=== PATIENT | male | born 1940 | race Caucasian/White ===

== ENCOUNTER → 2021-05-15 | Outpatient (CLI) | payer OTHER ==
[~2021-05-15] MED LIST: ALEVE220 M1 PO; AMARYL2 M1 PO; CENTRAVITES 501 EAC1 PO; CHILDREN'S ASPI81 M1 PO; FUROSEMIDE 40 M40 M1 PO; KLOR-CON 1010 MEQ PO; LEVO-T25 MCG PO; LIPITOR80 MG PO; METFORMIN HCL500 M3 PO; TOPROL XL25 MG PO
== END ==
LOC: LAB 06:21
PROVIDERS: ATTEND Student in an Organized Health Care Education/Training Program
DX: Z01.812 Encounter for preprocedural laboratory examination (principal); Z20.822 Contact with and (suspected) exposure to COVID-19

== ENCOUNTER → 2021-05-18 | Outpatient (CLI) | payer OTHER ==
[~2021-05-18] VITALS: Ht 175.3 cm; Wt 68.0 kg
--- NOTE | 2021-05-22 12:07 | PATH ---
[facility] [address] [place] [address] PATHOLOGY RPT PROCEDURE Name: AUDREYJUDSON Ross Room #: REG [facility] MMariana.#: [id number] Admission: 05/18/21 Date of : 44 Discharge: Report #: [id number] Path Case #: [id number] LCA Accession Number: [id number] . 01 Material submitted: . PART A: gastrointestinal site - GASTRITIS BIOPSY PART B: colon - ASCENDING COLON POLYP. Modifiers: ascending . 01 Clinical history: . ESOPHAGOGASTRODUODENOSCOPY, COLONOSCOPY BLOOD IN STOOL/ CRCS . 02 Diagnosis: A. Gastric mucosa (biopsy): - Marked chronic gastritis with marked activity, negative for dysplasia, negative for intestinal metaplasia, negative for Helicobacter-like organisms. . B. Gastric mucosa (ascending colon biopsy): - Inflammatory polyp with marked chronic inflammation. . (MIGUE:car; 05/21/2021) AGUSTIN 05/21/2021 [facility] Local . 02 Comment: IHC for H. pylori on A1: Negative. . Consideration of chronic inflammatory bowel disease could be considered. We find no evidence of epithelial dysplasia or malignancy. . (SONUBecky:car; 05/21/2021) . 02 Electronically signed: . Theron Linares MD, Pathologist NPI- [id number] . 01 Gross description: . A. Received in formalin labeled "Judson Carney, gastritis biopsy" are multiple rodriges-brown soft tissue fragments measuring in aggregate 1.4 x 0.4 x 0.3 cm. The specimen is submitted entirely in A1. . B. Received in formalin labeled "Judson Carney, ascending colon polyp" are multiple rodriges-brown soft tissue fragments measuring in aggregate 0.9 x 0.6 x 0.3 cm. The specimen is submitted entirely in B1. ([facility]; 05/19/2021) GZA/GZA 05/21/2021 1336 Local . 02 Pathologist provided ICD-10: [address] [address] PATHOLOGY RPT PROCEDURE Name: JUDSON CARNEY R [facility] [id number] Admission: 05/18/21 Date of : 44 Discharge: Report #: [id number] Path Case #: [id number] K29.50, K63.5, K52.9 . 02 CPT . 026846, [id number], [id number] Specimen Comment: A courtesy copy of this report has been sent to [phone], [phone] Specimen Comment: [phone] Specimen Comment: Report sent to / DR LEON Specimen Comment: A duplicate report has been generated due to demographic updates. Performed at: [facility] [address] [id number] MD Ramo Garcia MD Phone: [phone] Performed at: [address] [id number] MD Theron Linares MD Phone: [phone]
--- NOTE | 2021-05-23 08:33 | P ---
[facility] [place] [address] PROCEDURE REPORT Name: CARMENZA VENTURA Room #: REG ROSEMARY Tulio#: [id number] Admission: 05/18/21 Attend Phys: Mike Bhatia Discharge: Date of : 42 Report #: [id number] THIS REPORT FOR: cc: Adia Andrew MD,Adia Deleon,Mike Fitzpatrick MD ~ cc: Dr. Adia Andrew DATE OF SERVICE: 05/18/2021 PROCEDURE PERFORMED: Upper endoscopy with biopsies. HISTORY OF PRESENT ILLNESS: The patient is a 81-year-old male, fair historian. Denies any GI symptoms. Apparently a caregiver noticed possible blood in his stools. He has never had a colonoscopy or upper endoscopy. He denies any nausea, vomiting, dysphagia, heartburn or melena as well as bright red blood per rectum. No family history of colon cancer. Plan is for EGD and colonoscopy today. DESCRIPTION OF PROCEDURE: The risks and benefits of the procedure were explained to the patient, those risks including but not limited to bleeding, perforation and the risk of sedation. He understood these risks and gave informed consent. Sedation was given using propofol per anesthesia. Next, using a standard Olympus upper endoscope, the scope was placed in the patient's mouth and advanced under direct vision through the esophagus, stomach and into the second portion of the duodenum. The larynx was normal in appearance. The esophagus was normal throughout. The GE junction was normal. There was a mild diffuse gastritis noted in the gastric body. Biopsies were obtained to rule out H. pylori. Also noted in the gastric antrum was a submucosal 2 cm mass. The pylorus was normal and patent. The duodenal bulb, first and second portion were all normal. The major papilla was seen and normal. The scope was then withdrawn and the procedure terminated. The patient tolerated the procedure well. IMPRESSION: 1. Mild gastritis. 2. Submucosal mass/nodule in the gastric antrum. 3. Otherwise, normal upper endoscopy. RECOMMENDATIONS: 1. Await biopsy results. 2. Consider endoscopic ultrasound for further evaluation of antral submucosal mass. 3. We will proceed with colonoscopy next today. [address] [address] PROCEDURE REPORT Name: CARMENZA VENTURA Room #: REG [facility] Tulio#: [id number] Admission: 05/18/21 Attend Phys: Mike Bhatia Discharge: Date of : 42 Report #: [id number] Thank you for allowing me to participate in his care. <ELECTRONICALLY SIGNED> By: Mike Deleon MD 05/23/21 0833 1220 8240 Mike Deleon MD /nt
--- NOTE | 2021-05-23 08:33 | P ---
[facility] [place] [address] PROCEDURE REPORT Name: CARMENZA VENTURA Room #: REG ROSEMARY Tulio#: [id number] Admission: 05/18/21 Attend Phys: Mike Bhatia Discharge: Date of : 42 Report #: [id number] THIS REPORT FOR: cc: Adia Andrew MD,Adia Deleon,Mike Fitzpatrick MD ~ cc: Dr. Adia Andrew DATE OF SERVICE: 05/18/2021 PROCEDURE PERFORMED: Colonoscopy with polypectomy and APC cautery. HISTORY OF PRESENT ILLNESS: The patient is a 81-year-old male with a history of possible blood in his stools noted by a caregiver. The caregiver is not present today. Unclear if this was bright red blood or melanotic stools. The patient denies any obvious bleeding. Upper endoscopy was just performed, which showed mild gastritis. No evidence of bleeding. The patient has never had a colonoscopy. No family history of colon cancer. He denies any diarrhea or constipation. DESCRIPTION OF PROCEDURE: The risks and benefits of the procedure were explained to the patient, those risks including but not limited to bleeding, perforation and the risk of sedation. He understood these risks and gave informed consent. Sedation was given using propofol per anesthesia. Next, a digital rectal exam was initially performed, which was normal. Next, using a pediatric Olympus colonoscope, the scope was placed in the patient's anus and advanced under direct vision to the cecum. The overall prep was good. The cecum and ileocecal valve were normal in appearance. In the proximal ascending colon, a 7 mm sessile polyp was noted. This was removed by snare cautery, otherwise normal. The transverse and descending and sigmoid colon were normal. In the distal rectum, there was what appears to be a possible radiation proctitis. This was mild. No evidence of bleeding. Because of his history of possible bleeding, I proceeded to treat these with APC cautery. There was no evidence of bleeding after cauterization as well. Small nonbleeding internal hemorrhoids were also noted. The scope was then withdrawn and the procedure terminated. The patient tolerated the procedure well. IMPRESSION: 1. 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 2. Ascending colon polyp. 3. Internal hemorrhoids. RECOMMENDATIONS: 1. Await biopsy results. 2. Observe the patient status post procedure. [address] [address] PROCEDURE REPORT Name: CARMENZA VENTURA Room #: REG CL Tulio#: [id number] Admission: 05/18/21 Attend Phys: Mike Bhatia Discharge: Date of : 42 Report #: [id number] Thank you for allowing me to participate in his care. <ELECTRONICALLY SIGNED> By: Mike Deleon MD 05/23/21 0833 1302 2338 Mike Deleon MD /calli
== END | disposition home or self-care (01) ==
LOC: GI
PROVIDERS: ATTEND Specialist
DX: K62.5 Hemorrhage of anus and rectum (principal); K51.40 Inflammatory polyps of colon without complications; K52.9 Noninfective gastroenteritis and colitis, unspecified; K29.50 Unspecified chronic gastritis without bleeding; K64.8 Other hemorrhoids; I10 Essential (primary) hypertension; E11.9 Type 2 diabetes mellitus without complications; E78.5 Hyperlipidemia, unspecified; E03.9 Hypothyroidism, unspecified; E78.00 Pure hypercholesterolemia, unspecified; Z98.890 Other specified postprocedural states; Z79.899 Other long term (current) drug therapy; Z79.82 Long term (current) use of aspirin; Z87.891 Personal history of nicotine dependence; Z85.820 Personal history of malignant melanoma of skin; Z88.8 Allergy status to other drugs, medicaments and biological substances
CPT/HCPCS: 62110; 62900

== ENCOUNTER 2021-07-16 13:08 | Inpatient (IN) | payer OTHER ==
[~2021-07-16] VITALS: Ht 172.7 cm; Wt 70.0 kg
[2021-07-16 13:53] VITALS: BP 149/77
[2021-07-16 18:14] LABS: URINE BILIRUBIN NEGATIVE (Negative); URINE BLOOD NEGATIVE (Negative); URINE CLARITY CLEAR; URINE COLOR YELLOW; URINE GLUCOSE-RANDOM* NEGATIVE (Negative); URINE KETONES NEGATIVE (Negative); URINE LEUKOCYTES-REFLEX NEGATIVE (Negative); URINE NITRITE-REFLEX NEGATIVE (Negative); URINE PROTEIN (DIPSTICK) NEGATIVE (Negative); URINE SPECIFIC GRAVITY 1.015 (1.005-1.035); URINE UROBILINOGEN 0.2 E.U./dl (0.2-1.0)
[2021-07-16 18:20] LABS: ABSOLUTE NEUTROPHILS 5.6 thou/uL (1.4-8.2); BASOPHILS 0.1 % (0.0-2.0); EOSINOPHILS 0.1 % (0.0-3.0); HEMOGLOBIN 8.3 gm/dL (14.0-18.0); LYMPHOCYTES 10.9 % (24.0-44.0); MCH 24.8 pg (26.0-34.0); MCV 77.4 fL (80.0-100.0); MONOCYTES 9.8 % (1.0-8.0); PLATELET COUNT 150 thou/uL (150-400); POLYS 79.1 % (36.0-66.0); RBC 3.36 mil/uL (4.50-6.00); RDW 18.2 % (10.5-14.5); WBC 7.1 thou/uL (4.0-11.0)
[2021-07-16 18:38] LABS: CALCIUM 9.8 mg/dL (8.5-10.1); CREATININE 1.7 mg/dL (0.7-1.3)
[2021-07-16 18:41] LABS: ANISOCYTOSIS 1+
[2021-07-16 18:44] LABS: ALBUMIN 2.4 g/dL (3.4-5.0); TOTAL BILIRUBIN 0.9 mg/dL (0.2-1.0); TOTAL PROTEIN 8.4 g/dL (6.4-8.2)
[2021-07-16 22:36] LABS: % SATURATION 7 % (20-39); IRON 24 ug/dL (65-175); TIBC 351 ug/dL (250-450)
[2021-07-16 22:37] LABS: CHOLESTEROL 132 mg/dL (<200); HDL CHOLESTEROL 23 mg/dL (>40); LDL CHOLESTEROL 71 mg/dL (<100); TC:HDL 5.7 Ratio (Not establshd); TRIGLYCERIDE 192 mg/dL (<150); VLDL 38 mg/dL (<40)
[2021-07-16 22:39] LABS: SERUM ASSESSMENT Clear
[2021-07-16 23:36] LABS: FOLIC ACID 42.2 ng/mL (8.6-58.9)
[2021-07-16 23:45] VITALS: BP 105/58
[2021-07-17 06:15] VITALS: BP 116/55
--- NOTE | 2021-07-17 06:42 | NUR ---
PT SLEPT MOST OF THE NIGHT. RESP EVEN AND UNLABORED. INCONTINENT OF URINE. IVF INFUSING ORDERED. VSS. AFEBRILE. NO NEW CONCERNS NOTED.
--- NOTE | 2021-07-17 07:34 | EKG ---
[address] [address] ELECTROCARDIOGRAM REPORT Name: CARMENZA VENTURA Room #: 170-14 ADM IN M.R.#: [id number] Admission: 07/16/21 Attend Phys: Vicente Steele MD Discharge: Date of : 42 Report #: [id number] [facility] ED Test Date: 2021-07-16 Test Time: 18:13:46 Pat Name: CARMENZA VENTURA Department: Room: 170 Gender: M Academic Program Specialist: : 1940 Requested By: Lilia Morales Order Number: [id number] MD: Martir Acevedo Measurements Intervals [place] Rate: 98 P: 39 ME: 131 QRS: 9 QRSD: 90 T: 45 QT: 353 QTc: 451 Interpretive Statements Sinus rhythm Atrial premature complex Compared to ECG 07/30/2005 14:29:27 Atrial premature complex(es) now present Electronically Signed On 07-17-2021 7:34:42 NARROW GAUGE OPERATOR by Martir Acevedo [email or web address] <ELECTRONICALLY SIGNED> By: Martir Acevedo MD, [facility] 07/17/21 0734 1812 12 Martir Acevedo MD, FACC /EPI
[2021-07-17 08:22] VITALS: BP 116/55
[2021-07-17 08:24] LABS: HEMATOCRIT 22.7 % (42.0-52.0); MCH 24.3 pg (26.0-34.0); MCHC 31.1 g/dL (28.0-37.0); RBC 2.9 mil/uL (4.50-6.00); RDW 18.5 % (10.5-14.5); WBC 3.5 thou/uL (4.0-11.0)
[2021-07-17 09:07] LABS: CREATININE 1.4 mg/dL (0.7-1.3); POTASSIUM 4.3 mmol/L (3.5-5.1)
[2021-07-17 14:58] VITALS: BP 116/55
[2021-07-17 17:04] VITALS: BP 118/60
--- NOTE | 2021-07-17 18:05 | NUR ---
81 year old male presents to the ED via EMS with caregiver with AMS. Caregiver reports unable to answer questions at doctors appointment earlier and unable to care for self or his . The patient has been admitted with BRANDON, Hyponatremia, Metabolic encephalopathy, Lactic acidosis,, debility and weakness with falls, as well as hx of Frozen left hip s/p Left TKR, DMII, HTN, HLD and Hypothyroidism. Notably per ED Triage Assessment listed as not vaccinated: HOWEVER son notes father IS vaccinated and ED ID NOW shows negative. Therapy orders have been placed and GI has been consulted. Patient list son Wilfrid Carney at [phone] as next of kin. Spoke with son who states parents are in the process of moving into [facility] but currently living at home with a caregiver. Introduced the role of CM and noted as medical assessments are completed with therapy evaluations, CM will contact for discharge need with anticipated discharge to [facility] skilled care is so warranted. CM will continue to follow.
[2021-07-17 20:00] VITALS: BP 120/60
[2021-07-17 23:56] VITALS: BP 125/60
[2021-07-18] VITALS (8 sets, daily range): BP systolic 105–144; BP diastolic 54–71
[2021-07-18 01:06] LABS: GLYCOHEMOGLOBIN (HGB A1C) 9.2 % (4.8-5.6)
[2021-07-18 03:06] LABS: RBC 2.68 mil/uL (4.50-6.00)
[2021-07-18 03:08] LABS: HEMATOCRIT 21.1 % (42.0-52.0); HEMOGLOBIN 6.7 gm/dL (14.0-18.0); MCH 24.9 pg (26.0-34.0); MCHC 31.6 g/dL (28.0-37.0); MCV 78.8 fL (80.0-100.0); RDW 19.2 % (10.5-14.5); WBC 2.7 thou/uL (4.0-11.0)
[2021-07-18 03:58] LABS: CALCIUM 8.8 mg/dL (8.5-10.1); CREATININE 1.6 mg/dL (0.7-1.3); POTASSIUM 4.1 mmol/L (3.5-5.1)
--- NOTE | 2021-07-18 11:45 | NUR ---
SNF referral initiated with Ru Velazquez and clinical faxed to Hilda in admissions. Pt may be dc ready tomorrow or Friday. No auth needed as pt is medicare. [facility] completed and faxed along with the referral. Son's number provided to admissions for f/u regarding shelter plans for both pt/spouse to move to that senior living community. They are reviewing.
[2021-07-18 13:11] LABS: OBSERVED RETIC COUNT 2.13 % (0.6-2.6)
[2021-07-18 13:29] LABS: ABSOLUTE RETIC COUNT 0.0578 10^6/uL
--- NOTE | 2021-07-18 18:38 | NUR ---
pt admitted to the unit from the ed. oriented to room and bedspace. manuel diet and fluids. assessment as charted - no co's of pain or nausea. states comfortable at the present time.
[2021-07-18 21:06] LABS: IgG 2017 mg/dL (603-1613); IgM 242 mg/dL (15-143)
[2021-07-18 22:06] LABS: IgA 1018 mg/dL (61-437)
[2021-07-19 02:50] LABS: HEMATOCRIT 24.2 % (42.0-52.0); HEMOGLOBIN 7.6 gm/dL (14.0-18.0); MCH 25.4 pg (26.0-34.0); MCHC 31.6 g/dL (28.0-37.0); MCV 80.4 fL (80.0-100.0); RBC 3.01 mil/uL (4.50-6.00); RDW 18.3 % (10.5-14.5); WBC 3.1 thou/uL (4.0-11.0)
--- NOTE | 2021-07-19 02:54 | NUR ---
ASSESSMENTS CHARTED, MEDS CHARTED GIVEN. PATIENT RESTING IN BED DURING SHIFT. PATIENT RECEIVED ONE UNIT PRBC DURING DAY SHIFT. AOX4, SINUS TACH ON TELEMETRY. LUNGS ARE COARSE ON ROOM AIR. APPLIED CONDOM CATH. PATIENT AKNOWLEDGES TO LEAVE IT ALONE. PATIENT AND CONSIDERING MOVING TO [facility]. CURRENTLY HAVE HOME HEALTH.
[2021-07-19 02:59] LABS: CALCIUM 8.8 mg/dL (8.5-10.1); CREATININE 1.2 mg/dL (0.7-1.3)
[2021-07-19 04:41] VITALS: BP 138/67
[2021-07-19 05:07] LABS: HEMOGLOBIN 6.6 g/dL (13.0-17.7)
[2021-07-19 07:55] VITALS: BP 127/66
[2021-07-19 09:07] LABS: KAPPA FREE LIGHT CHAINS 193.9 mg/L (3.3-19.4); KAPPA/LAMBDA RATIO 1.33 (0.26-1.65); LAMBDA FREE LIGHT CHAINS 145.7 mg/L (5.7-26.3)
[2021-07-19 11:07] LABS: HEP B SURFACE Ab(ANTI-HBS Non Reactive (()); HEPATITIS B SURFACE AG Negative (Negative); HEPATITIS C VIRUS AB 0.1 (0.0-0.9)
[2021-07-19 11:24] VITALS: BP 135/98
--- NOTE | 2021-07-19 13:01 | NUR ---
Nutrition: pt admitted with anemia, AMS and seen due to wound risk. Nsg reports this is boggy heel, bruise on back. No open pressure wounds. Pt is eating well, 80-100% of meals on Carb controlled, heart healthy diet. No weight loss per hx. Gi following, on Fe+ infusion. Consider low nutrition risk
[2021-07-19 15:08] LABS: GLOBULIN TOTAL 4.4 g/dL (2.2-3.9); M-SPIKE Not Observed g/dL (Not Observed)
[2021-07-19 15:13] VITALS: BP 119/65
--- NOTE | 2021-07-19 16:08 | NUR ---
JOSÉ LUIS FOLLOWED UP WITH MAGALIS WITH [facility] FOR SNF. SHE INDICATED PT IS ACCEPTED FOR HOWEVER NO BONNIE AVAILABLE. SHE REPORTS NOT HAVING ONE AVAILABLE UNTIL FRIDAY. WILL SAVE FOR PT. JOSÉ LUIS WILL SPEAK TO PT AND FAMILY FOR ANOTHER SELECTED CHOICE IN FACILITIES AND SENT REFERRAL. CM FOLLOWING.
--- NOTE | 2021-07-19 16:19 | NUR ---
[facility]. CM WILL FOLLOW.
[2021-07-19 19:06] LABS: ANA INTERPRETATION Positive (())
--- NOTE | 2021-07-19 19:24 | NUR ---
Pt has been A&0x4, VS stable and afebrile. HR was elevated in AM. Pt was given metropolol and HR went down to 80s and 90s for remainder of shift. Pt has been resting in bed. Pt worked with OT. Was not able to work with PT d/t elevated HR. Pt has a non-productive cough. Cough meds given Q4, pt stated that "it doesn't seem to be working". No complaints of pain. No current concerns. Continue to monitor.
[2021-07-19 20:35] VITALS: BP 143/80
[2021-07-20 03:21] LABS: HEMATOCRIT 26.9 % (42.0-52.0); HEMOGLOBIN 8.4 gm/dL (14.0-18.0); MCH 25.2 pg (26.0-34.0); MCHC 31.3 g/dL (28.0-37.0); MCV 80.5 fL (80.0-100.0); RBC 3.34 mil/uL (4.50-6.00); RDW 18.7 % (10.5-14.5)
[2021-07-20 03:42] VITALS: BP 130/61
--- NOTE | 2021-07-20 07:29 | NUR ---
PT ALERT AND ORIENTED TO NAME AND TIME, AND REORIENTS EASILY YET FORGETFUL, VSS, NO C/O PAIN REPOSITIONED FREQUENTLY, LEGS ELEVATED ON PILLOWS, IV FLUIDS INFUSING R FA, WILL CON'T TO MONITOR PER PPOC.
[2021-07-20 08:00] VITALS: BP 130/65
--- NOTE | 2021-07-20 11:01 | 2DMMODE ---
[facility] [place] [address] 2 D/M-MODE ECHOCARDIOGRAM Name: CARMENZA VENTURA Room #: 207-P ADM IN M.R.#: [id number] Admission: 07/16/21 Attend Phys: Vicente Steele MD Discharge: Date of : 42 Report #: [id number] THIS REPORT FOR: cc: Adia Andrew MD, Melanie MD Santiago, Patrick MD [facility] ~ APPROVED REPORT Study performed: 07/20/2021 09:30:39 EXAM: Comprehensive 2D, Doppler, and color-flow Echocardiogram Patient Location: In-Patient Room #: 207 Status: routine BSA: 1.84 HR: 91 bpm BP: 130/61 mmHg Rhythm: NSR Other Information Study Quality: Adequate Technically limited study due to body habitus. Indications Diabetes AMS 2D Dimensions IVSd: 11.28 (7-11mm) LVOT Diam: 20.81 (18-24mm) LVDd: 37.07 mm PWd: 9.83 (7-11mm) Ascending Ao: 27.41 (22-36mm) LVDs: 26.99 (25-40mm) Left Atrium: 34.30 (27-40mm) Aortic Root: 35.39 mm LV Single Plane 4CH: 43.77 % LV Single Plane 2CH: 55.47 % Volumes Left Atrial Volume (Systole) Single Plane 4CH: 34.15 mL Single Plane 2CH: 34.58 mL Biplane LA Volume: 38.00 mL LA ESV Index: 20.00 mL/m2 Aortic Valve [facility] [address] [place] [address] 2 D/M-MODE ECHOCARDIOGRAM Name: CARMENZA VENTURA Room #: 207-P [facility] IN .R.#: [id number] Admission: 07/16/21 Attend Phys: Vicente Steele MD Discharge: Date of : 42 Report #: [id number] AoV Peak Ty.: 1.81 m/s AO Peak Gr.: 13.10 mmHg LVOT Max P.17 mmHg LVOT Max V: 1.02 m/s ADOLFO Vmax: 1.92 cm2 Mitral Valve E/A Ratio: 1.3 MV Decel. Time: 2442.03 ms MV E Max Ty.: 0.73 m/s MV A Ty.: 0.57 m/s MV PHT: 708.19 ms Pulmonary Valve PV Peak Ty.: 0.92 m/s PV Peak Gr.: 3.35 mmHg AZ End Vmax: 1.71 m/s Pulmonary Vein P Vein S: 0.73 m/s P Vein A: 0.29 m/s P Vein D: 0.59 m/s P Vein A Dur.: 115.3 msec P Vein S/D Ratio: 1.24 Tricuspid Valve TR Peak Ty.: 3.40 m/s RAP Estimate: 7.00 mmHg TR Peak Gr.: 46.36 mmHg RVSP: 53.00 mmHg Left Ventricle The left ventricle is normal size. There is normal LV segmental wall motion. There is normal left ventricular wall thickness. Left ventricular systolic function is normal. The left ventricular ejection fraction is within the normal range. LVEF is 50-55%. This study is not technically sufficient to allow evaluation of the LV diastolic function due to atrial fibrillation. Right Ventricle The right ventricle is normal size. The right ventricular systolic function is normal. Atria Left atrium is mildly dilated. Small PFO is noted. Doppler suggests left to right interatrial shunt. The right atrium size is normal. Aortic Valve Aortic valve is trileaflet. No aortic regurgitation is present. There is no aortic valvular stenosis. [facility] [address] [address] 2 D/M-MODE ECHOCARDIOGRAM Name: CARMENZA VENTURA Room #: 207-P [facility] IN [facility]#: [id number] Admission: 07/16/21 Attend Phys: Vicente Steele MD Discharge: Date of : 42 Report #: [id number] Mitral Valve The mitral valve is normal in structure. Trace mitral regurgitation. No evidence of mitral valve stenosis. Tricuspid Valve The tricuspid valve is normal in structure. Mild to moderate tricuspid regurgitation PAP 53 mmHg Pulmonic Valve The pulmonary valve is normal in structure. There is no pulmonic valvular regurgitation. Great Vessels The aortic root is normal in size. IVC is normal in size and collapses >50% with inspiration. Pericardium There is no pericardial effusion. There is no pleural effusion. <Conclusion> Normal left ventricle size/wall thickness Ejection fraction 55% Normal right ventricle size/function Left atrium mildly dilated Aortic valve mildly calcified, no stenosis Normal mitral valve structure and function Mild tricuspid valve insufficiency Moderate pulmonary hypertension PA pressure estimated 53 mmHg No pericardial effusion Normal aortic root size <ELECTRONICALLY SIGNED> By: Eyal Howard MD, FACC 07/20/21 1100 1100 99 Eyal Howard MD, FACC /INF
--- NOTE | 2021-07-20 11:28 | NUR ---
PT MEDICALLY STABLE TO OR. [facility] AVAILABLE UNTIL FRIDAY. THEY WILL HOLD A BED FOR HIM AND PT WILL TRANSFER FRIDAY THE . [facility] PHONE NUMBER [phone] AND FAX [phone]. MAGALIS REQUEST COPY OF COVID VACCINATION CARE. SPOKE TO LUCIANA PTS SON AND MAYA CARDOSOS CAREGIVER. ALL PARTIES AWARE. LUCIANA WILL FORWARD COPY OF VACCINATED CARE TO [place]. CM WILL FOLLOW.
[2021-07-20 11:35] VITALS: BP 128/63
[2021-07-20 15:18] VITALS: BP 143/78
[2021-07-20 20:36] VITALS: BP 143/62
--- NOTE | 2021-07-21 01:43 | NUR ---
pt is hallucinating thinking that he sees a cat on the floor. he is agreeable and remembering directions. bed alarm set. he is wanting to sit on the edge of the bed. repositioned and gave him some fresh water. he is settling down trying to rest.
[2021-07-21 03:42] VITALS: BP 133/68
[2021-07-21 07:54] VITALS: BP 143/70
[2021-07-21 11:14] VITALS: BP 136/70
[2021-07-21 12:28] LABS: ABSOLUTE NEUTROPHILS 3.2 thou/uL (1.4-8.2); BASOPHILS 0.4 % (0.0-2.0); EOSINOPHILS 3.4 % (0.0-3.0); HEMATOCRIT 28.6 % (42.0-52.0); HEMOGLOBIN 8.8 gm/dL (14.0-18.0); LYMPHOCYTES 14.7 % (24.0-44.0); MCH 25.3 pg (26.0-34.0); MCV 81.6 fL (80.0-100.0); MONOCYTES 10.6 % (1.0-8.0); PLATELET COUNT 127 thou/uL (150-400); POLYS 70.9 % (36.0-66.0); RDW 18.9 % (10.5-14.5); WBC 4.6 thou/uL (4.0-11.0)
[2021-07-21 12:43] LABS: ALBUMIN 1.9 g/dL (3.4-5.0); CALCIUM 8.8 mg/dL (8.5-10.1); CREATININE 1.2 mg/dL (0.7-1.3); MAGNESIUM 1.7 mg/dL (1.8-2.4); POTASSIUM 4.1 mmol/L (3.5-5.1); TOTAL BILIRUBIN 0.9 mg/dL (0.2-1.0); TOTAL PROTEIN 7.3 g/dL (6.4-8.2)
--- NOTE | 2021-07-21 14:24 | NUR ---
spoke with patients Yunior moreau. Update given
[2021-07-21 15:01] VITALS: BP 134/65
--- NOTE | 2021-07-21 17:17 | NUR ---
ASSUMED CARE OF ALEXA AT 0700. NO FALLS OR INJURIES THIS SHIFT. VSS. IVF CONTINUES AT 75ML/HR. PATIENT REMAINS A&O TO SELF AND YEAR AND CONTINUES TO TALK TO SELF. RA WITH INSP WHEEZES PRESENT ON ASSESSMENT. ACCU CHECKS COMPLETED AND TREATED PER ORDERS. PATIENT TURNED ALLOWED. PATIENT PROGRESSING TOWARD POC.
[2021-07-21 19:52] VITALS: BP 154/90
[2021-07-21 20:08] LABS: CALCIUM 8.7 mg/dL (8.5-10.1); CREATININE 1.2 mg/dL (0.7-1.3); HEMATOCRIT 27.6 % (42.0-52.0); HEMOGLOBIN 8.5 gm/dL (14.0-18.0); MCH 25.3 pg (26.0-34.0); MCV 81.8 fL (80.0-100.0); RBC 3.37 mil/uL (4.50-6.00); RDW 19.2 % (10.5-14.5); WBC 3.5 thou/uL (4.0-11.0)
[2021-07-21 23:45] VITALS: BP 144/72
[2021-07-22 03:26] VITALS: BP 158/91
--- NOTE | 2021-07-22 05:54 | NUR ---
PT ASSESSMENTS CHARTED, NO C/O PAIN, VSS, REPOSTIONED FREQUENTLY,REMAINS INCONT, CONFUSED AND FORGETFUL, WILL CON'T TO MONITOR PER PPOC.
[2021-07-22 07:35] VITALS: BP 139/74
[2021-07-22 11:14] VITALS: BP 138/74
[2021-07-22 15:18] VITALS: BP 133/68
--- NOTE | 2021-07-22 16:00 | NUR ---
ASSUMED CARE OF PATIENT AT 0700. NO FALLS OR INJURIES THIS SHIFT. PATIENT REMAINS CONFUSED BUT PLEASANT, ON RA, AND NSR ON TELE. ACCU CHECKS COMPLETED AND TREATED PER ORDER. REMAINS INCONTINENT AND TURNED NEEDED TO MAINTAIN SKIN INTERITY. PATIENT SHOULD TRANSFER TO [facility] TOMORROW.
[2021-07-22 20:30] VITALS: BP 148/76
[2021-07-23 03:59] LABS: ABSOLUTE NEUTROPHILS 2.8 thou/uL (1.4-8.2); BASOPHILS 0.5 % (0.0-2.0); EOSINOPHILS 5.7 % (0.0-3.0); HEMATOCRIT 29.3 % (42.0-52.0); HEMOGLOBIN 9.1 gm/dL (14.0-18.0); LYMPHOCYTES 16.2 % (24.0-44.0); MCH 25.6 pg (26.0-34.0); MCHC 31.2 g/dL (28.0-37.0); MCV 82.1 fL (80.0-100.0); MONOCYTES 12.2 % (1.0-8.0); PLATELET COUNT 135 thou/uL (150-400); POLYS 65.4 % (36.0-66.0); RBC 3.57 mil/uL (4.50-6.00); RDW 18.9 % (10.5-14.5); WBC 4.3 thou/uL (4.0-11.0)
[2021-07-23 04:09] LABS: ALBUMIN 1.8 g/dL (3.4-5.0); CALCIUM 8.8 mg/dL (8.5-10.1); CREATININE 1.1 mg/dL (0.7-1.3); MAGNESIUM 1.8 mg/dL (1.8-2.4); PHOSPHORUS 1.9 mg/dL (2.5-4.9); POTASSIUM 3.7 mmol/L (3.5-5.1); TOTAL BILIRUBIN 0.9 mg/dL (0.2-1.0); TOTAL PROTEIN 7.1 g/dL (6.4-8.2)
[2021-07-23 05:35] VITALS: BP 149/75
[2021-07-23 08:05] VITALS: BP 146/79
--- NOTE | 2021-07-23 08:52 | NUR ---
PT RESTING QUIETLY IN ROOM, ASSESSMENTS CHARTED, VSS, NO C/O PAIN, INCON'T OF STOOL THIS AM, REPORT GIVEN TO NEXT SHIFT TO CON'T PPOC
[2021-07-23 11:25] VITALS: BP 149/86
[2021-07-23] MEDS ORDERED: PACERONE 200 M200 M1 PO (12:39)
[2021-07-23] MEDS ORDERED: ARICEPT 5 MG TAB5 MG PO (12:39)
[2021-07-23] MEDS ORDERED: COZAAR 25 MG TA25 M1 PO (12:40)
[2021-07-23] MEDS ORDERED: LOPRESSOR50 PO (12:40)
--- NOTE | 2021-07-23 14:16 | HC ---
[facility] [place] [address] CONSULTATION Name: CARMENZA VENTURA Room #: 207-P ADM IN M.R.#: [id number] Admission: 07/16/21 Attend Phys: Vicente Steele MD Discharge: Date of : 42 Report #: [id number] THIS REPORT FOR: cc: Adia Andrew MD, Melanie MD Khosla,Aram Easley MD ~ DATE OF SERVICE: 07/18/2021 HISTORY OF PRESENT ILLNESS: This is a 81-year-old male patient who was seen by office on Friday. I was asked to see the patient for a left foot drop. He was very confused and he was sent to Emergency Room for evaluation. He came to Emergency Room and looks like he has been found to have multiple problems. He is anemic and when he came in, his lactic acid is high and that is coming down. The patient looks much improved neurologically than when I saw him on Friday. REVIEW OF SYSTEMS: Positive for multiple things. It is positive for diabetes, hypertension, hyperlipidemia, problem with the shoulder, problem with at least the left leg and to some extent both legs. He has some aortic aneurysms. He has hypothyroidism. He has a caregiver who had recommended that he goes to a senior living. His also has Parkinson's disease. He has memory issues that just became worse recently. Sometimes, he does not go for a bowel movement and does it on the bed. This is the relevant 14-point review of system I can get. PAST MEDICAL HISTORY: Positive for leg issues, which has been persistent. FAMILY HISTORY: Unremarkable. SOCIAL HISTORY: Does not drink any alcohol. PHYSICAL EXAMINATION: Today, indicate he is alert. He could tell me what month it is, which is an improvement since yesterday. He was able to name the president after thinking about it for some time. He was not just singing and completely disoriented as he was yesterday. Cranial nerve examination was attempted, but he did not cooperate much with that. His neuromuscular examination was unchanged since yesterday and showed no improvement or getting any back. He did very poorly with the position sense in all that he could not get it on either side. He could not cooperate with the fundus exam. He was eating. He was not in respiratory difficulty. There was no edema. Cardiac examination appeared unremarkable. Blood pressure was 105/54, respirations 20, pulse is 118, which is high. LABORATORY DATA: His hemoglobin is only 6.7. His liver functions are abnormal. He had a head CT when he was admitted, which was unremarkable. IMPRESSION: This patient has numerous medical issues. He appears to have baseline dementia, which got decompensated because of multiple metabolic [facility] [address] [place] [address] CONSULTATION Name: CARMENZA VENTURA Cody Room #: 207-P [facility] IN M.R.#: [id number] Admission: 07/16/21 Attend Phys: Vicente Steele MD Discharge: Date of : 42 Report #: [id number] problems. He has become better after his metabolic problems has improved, but he has intractable other problems and I think neurologically, we can just continue to watch him and he can follow up with our office after he is dismissed. Thank you very much for this referral. We will follow up only if he recalls. <ELECTRONICALLY SIGNED> By: Aram Bernard MD 07/23/21 1416 1322 1916 Aram Bernard MD /nt
--- NOTE | 2021-07-23 14:32 | NUR ---
Assumed care of pt this AM. Pt is oriented x3, on RA, SR on the monitor. Plan for possible discharge to SNF today. Pt heels boggy, elevated on pillow. Pt reports pain 3-10. Pt denies wanting any pain medication. Pt on current bedrest w/ condom cath in place. High fall precautions in place.
--- NOTE | 2021-07-23 16:12 | EKG ---
[address] [address] ELECTROCARDIOGRAM REPORT Name: CARLIN VENTURATOMAS Ross Room #: 207-P ADM IN M.R.#: [id number] Admission: 07/16/21 Attend Phys: Vicente Steele MD Discharge: Date of : 44 Report #: [id number] [facility] Test Date: 2021-07-23 Test Time: 09:18:03 Pat Name: CARMENZA VENTURA Department: Room: 207 P Gender: M Outside Contractor Sales: : 1940 Requested By: Tiffany Crabtree Order Number: [id number] : Eyal Howard Measurements Intervals [place] Rate: 77 P: 49 NC: 130 QRS: 27 QRSD: 83 T: 44 QT: 401 QTc: 454 Interpretive Statements Sinus rhythm Compared to ECG 07/16/2021 18:13:46 Atrial premature complex(es) no longer present Electronically Signed On 07-23-2021 16:12:10 BEHAVIORAL SCIENTIST by Eyal Howard [email or web address] <ELECTRONICALLY SIGNED> By: Eyal Howard MD, [facility] 07/23/21 1612 7 Eyal Howard MD, FAC /EPI
[2021-07-23 16:15] VITALS: BP 149/78
--- NOTE | 2021-07-23 17:02 | NUR ---
[facility] UNABLE TO ACCEPT PT THEY HAVE NO BEDS. CALL PLACED TO PTS SON AND DISCUSSED SECOND CHOICE FOR SNF SERVICES. CHOSE [facility]. FAXED REFERRAL IN WHICH THEY RECEIVED. THEY WILL LET CM KNOW BY 10 AM IF THEY CAN ACCEPT PT. IF NOT PLAN FOR PT TO DC HOME WITH PTS SON AND SERVICES. SON AWARE. THIS CM WILL F/U WITH PTS SON BY 11 AM TOMORROW TO SOLIFY DC PLAN. CM FOLLWOING.
[2021-07-23 20:25] VITALS: BP 149/75
[2021-07-24 04:51] VITALS: BP 151/70
--- NOTE | 2021-07-24 07:15 | NUR ---
ASSUMED CARE OF PT AT 1900. PT ASSESSED TO BE AOX3 81M PRESENTING WITH BRANDON, AMS, ANEMIA. PT WAS ABLE TO REST QUIETLY THROUGHOUT THE NIGHT WITH NO COMPLAINTS, VSS. PT RUNS SR ON TELE, CONDOM CATH INTACT AND DRAINING, BOGGY HEELS ELEVATED ON PILLOWS, STABLE ON RA, NO VERBALIZED PAIN, AND PULSES 2/1. PT WILL DC IN AM AWAITING MD ORDERS.
[2021-07-24 07:45] VITALS: BP 150/85
--- NOTE | 2021-07-24 09:14 | NUR ---
Assumed care of pt this AM. Pt is oriented x3, drowsy this AM. Pt on RA, SR on the monitor. Pt c/o pain to bilateral heels, which are boggy. Profo boots ordered & feet elevated off bed. Pt w/ condom cath in place, which is patent. Plan for discharge to SNF today. Frequent rounding. High fall precautions in place.
[2021-07-24 11:27] VITALS: BP 144/77
--- NOTE | 2021-07-24 15:26 | NUR ---
CM SPOKE TO KATALINA THIS DAY REGARDING SNF SERVICES AT [facility]. THEY WILL ACCEPT AND PT MEDICALLY STABLE TO DC. ORDERS FAXED AND RECEIVED FAX CONFIMATION. [id number] SENT ALONG WITH DC ORDERS. PT, RN, AND PTS SON AWARE. [facility] SET UP TRANSPORT AND PT WILL TRANSPORT VIA W/C [facility]AN AT 1600. CHART COPIES. NO FURTHER CM NEEDS AT THIST TIME.
== END 2021-07-24 16:20 | DRG 682 ==
LOC: ER 13:08 → EROBS 19:48 → 2N 19:48 → EROBS 23:39 → 2N 07-18 17:52
PROVIDERS: Internal Medicine; Nurse Practitioner; Nurse Practitioner Family; Student in an Organized Health Care Education/Training Program; ADMIT Hospitalist; ATTEND Hospitalist
PROC: 30233N1 Transfusion of Nonautologous Red Blood Cells into Peripheral Vein, Percutaneous Approach (ICD-10-PCS; principal; 2021-07-18)
DX: N17.9 Acute kidney failure, unspecified (principal); G93.41 Metabolic encephalopathy; E87.1 Hypo-osmolality and hyponatremia; D61.818 Other pancytopenia; Z20.822 Contact with and (suspected) exposure to COVID-19; Z96.652 Presence of left artificial knee joint; I10 Essential (primary) hypertension; E03.9 Hypothyroidism, unspecified; E78.00 Pure hypercholesterolemia, unspecified; E11.9 Type 2 diabetes mellitus without complications; E78.5 Hyperlipidemia, unspecified; R53.81 Other malaise; D50.9 Iron deficiency anemia, unspecified; R62.7 Adult failure to thrive; D63.1 Anemia in chronic kidney disease; I48.0 Paroxysmal atrial fibrillation; G30.9 Alzheimer's disease, unspecified; F02.80 Dementia in other diseases classified elsewhere, unspecified severity, without behavioral disturbance, psychotic disturbance, mood disturbance, and anxiety; E87.6 Hypokalemia; Z83.3 Family history of diabetes mellitus; Z82.49 Family history of ischemic heart disease and other diseases of the circulatory system; Z87.891 Personal history of nicotine dependence; Z86.010 Personal history of colon polyps; Z68.23 Body mass index [BMI] 23.0-23.9, adult; Z79.1 Long term (current) use of non-steroidal anti-inflammatories (NSAID); Z79.82 Long term (current) use of aspirin; Z79.899 Other long term (current) drug therapy
CPT/HCPCS: 10081